=== PATIENT | female | born 2000 | race Native Hawaiian/Other Pacific Islander ===

== ENCOUNTER 2019-09-26 22:37 | Emergency (ER) | payer OTHER ==
[~2019-09-26] VITALS: Ht 165.1 cm; Wt 103.4 kg
[2019-09-27 00:49] LABS: POTASSIUM 4.1 mmol/L (3.6-5.2); SODIUM 140 mmol/L (136-145)
[2019-09-27 00:50] LABS: PLATELET COUNT 300 K/uL (152-353)
[2019-09-27 02:40] VITALS: BP 120/72; TEMP 98.4
== END 2019-09-27 02:40 | disposition home or self-care (01) ==
LOC: ED 22:37
PROVIDERS: General Practice
DX: S93.492A Sprain of other ligament of left ankle, initial encounter (principal); W01.198A Fall on same level from slipping, tripping and stumbling with subsequent striking against other object, initial encounter; Y93.89 Activity, other specified; Y92.89 Other specified places as the place of occurrence of the external cause; R55 Syncope and collapse
CPT/HCPCS: 80053; 80307; 81000; 81025; 82728; 82805; 83605; 83735; 84484; 85027; 86140; 87502; 93005; 96360; 96375; 99284; J1885

== ENCOUNTER 2019-11-26 14:10 | Emergency (ER) | payer OTHER ==
[2019-11-26 20:00] LABS: PARTIAL THROMBOPLASTIN TIME 26.1 SECONDS (24.5-33.6)
[2019-11-26 20:01] LABS: PLATELET COUNT 284 K/uL (152-353)
[2019-11-26 20:10] LABS: POTASSIUM 4.1 mmol/L (3.6-5.2)
== END 2019-11-26 17:00 | disposition home or self-care (01) ==
LOC: ED 14:10
PROVIDERS: Hospitalist
DX: N30.10 Interstitial cystitis (chronic) without hematuria (principal); E28.2 Polycystic ovarian syndrome
CPT/HCPCS: 80053; 81000; 81025; 82150; 83690; 85027; 85610; 85730; 96360; 96361; 96374; 96375; 99284